=== PATIENT | female | born 1975 | race Two or more races ===

== ENCOUNTER → 2017-04-16 | Outpatient (CLI) | payer BC ==
[~2017-04-16] MED LIST: ASPIRIN PO; IBUPROFEN PO; LISINOPRIL PO; LOPID600 MG PO; METFORMIN PO; RELPAX40 MG PO
--- NOTE | ~2017-04-16 | NM22 ---
[facility] A Service of [facility] & [facility] RADIOLOGY TEXT RESULTS PATIENT: DANII TESFAYE LOCATION: [facility] : [birth year] UNIT #: [id number] AGE: [address]: Thom Hernandez III, MD SEX: F ORDER DR: [id number] [facility] [address] [place], [place] [address] [id number] O MR#: [id number] Acc #: [id number] NAME: DANII TESFAYE : 1975 SEX: F STUDY DATE/TIME: 04/16/2017 10:29 UNIT: [facility] ROOM: STUDY DESCRIPTION: SAUL Hepatobiliary W [facility] Attending Physician: Thom Hernandez III, M.D. Ordering Physician: Thom Hernandez III, M.D. Primary Care Physician: Pawel Allison M.D. MEDICAL IMAGING REPORT This report is preliminary unless electronic signature is present EXAM HIDA scan with Kinevac CCK 04/16/2017 HISTORY Right upper quadrant abdominal pain with indigestion, nausea and vomiting. Right upper quadrant pain radiates to the back. Early satiety. Symptoms began 1-1/2 years ago, steadily worsening. FINDINGS The patient received intravenous injection of 5.61 mCi of technetium 99m tagged Choletec for hepatobiliary imaging. 1 hour following the injection of the radiopharmaceutical the patient received an intravenous injection of 1.4 mcg of Kinevac. There is homogeneous distribution of the radiotracer throughout the liver. Gallbladder activity was seen by 15 minutes postinjection of the radiopharmaceutical. Following Kinevac injection the gallbladder ejection fraction was 47% (normal is greater than 30%). IMPRESSION Normal HIDA scan with gallbladder ejection fraction of 47%. Dictated by... Shahab Lee M.D. THIS IS AN ELECTRONICALLY VERIFIED REPORT Shahab Lee M.D. at 04/19/2017 12:47 PM WILIAN/theresa TD: 04/16/2017 18:51 JOB #: [id number] MEDICAL IMAGING REPORT Page 1 of 1 COPY
--- NOTE | ~2017-04-16 | US6 ---
[facility] A Service of [facility] & [facility] RADIOLOGY TEXT RESULTS PATIENT: DANII TESFAYE LOCATION: [facility] : 79 UNIT #: [id number] AGE: [address]: Thom Hernandez III, MD SEX: F ORDER DR: [id number] [facility] [address] [place], [place] [address] [id number] O MR#: [id number] Acc #: [id number] NAME: DANII TESFAYE : 1975 SEX: F STUDY DATE/TIME: 04/16/2017 9:28 UNIT: [facility] ROOM: STUDY DESCRIPTION: US Abdominal Limited Attending Physician: Thom Hernandez III, M.D. Ordering Physician: Thom Hernandez III, M.D. Primary Care Physician: Pawel Allison M.D. MEDICAL IMAGING REPORT This report is preliminary unless electronic signature is present EXAM Gallbladder ultrasound 04/16/2017 HISTORY Right upper quadrant abdominal pain for 18 months with nausea and vomiting. FINDINGS Ultrasound examination of the gallbladder is negative. There is no cholelithiasis, gallbladder wall thickening, or bile duct dilatation. The visualized liver is negative. IMPRESSION Negative gallbladder ultrasound examination. Dictated by... Shahab Lee M.D. THIS IS AN ELECTRONICALLY VERIFIED REPORT Shahab Lee M.D. at 04/16/2017 4:34 PM WILIAN/theresa TD: 04/16/2017 15:51 JOB #: [id number] MEDICAL IMAGING REPORT Page 1 of 1 COPY
== END | disposition home or self-care (01) ==
LOC: CWCC 04-13 11:30 → CNUC 04-13 13:30 → CWCC 09:14
DX: R10.11 Right upper quadrant pain (principal)
CPT/HCPCS: 76705; 78227; A9537; J2805